=== PATIENT | female | born 1950 | race Caucasian/White ===

== ENCOUNTER 2024-01-04 13:33 | Outpatient (CLI) | payer MEDICARE, OTHER | END 2024-01-04 13:34 | disposition home or self-care (01) | LOC: CSHMAMMO 13:33 | PROVIDERS: ATTEND Obstetrics & Gynecology | DX: Z12.31 Encounter for screening mammogram for malignant neoplasm of breast (principal) | CPT/HCPCS: 77063; 77067 ==

== ENCOUNTER 2024-01-23 09:58 | Outpatient (CLI) | payer MEDICARE, OTHER | END 2024-01-23 09:59 | disposition home or self-care (01) | LOC: CSHULT 09:58 | PROVIDERS: ATTEND Physician Assistant | DX: N28.1 Cyst of kidney, acquired (principal) | CPT/HCPCS: 76770 ==